=== PATIENT | female | born 1995 | race Caucasian/White ===

== ENCOUNTER 2018-06-16 09:20 | Emergency (ER) | payer OTHER ==
[2018-06-16 09:41] VITALS: PULSE 72; TEMP 98.5; BMI 36.8
[2018-06-16] MEDS ORDERED: ALBUTEROL SO4 2.5/IPRATROPIUM 0.5 INH SOL 3 ML VIAL.NEB. NEB ONE ×4 (10:05→11:03)
--- NOTE | 2018-06-16 10:05 | PDOC ---
History of Present Illness - General Chief Complaint: Asthma Stated Complaint: ASTHMA Time Seen by Provider: 06/16/18 09:48 History Source: Patient Exam Limitations: No Limitations - History of Present Illness Initial Comments: 06/16/18 10:06 Patient came directly department with complaints of cough persistent for the past 3 weeks. got sick around Deejay time and was "too busy to see the doctor" due to work schedule. Denies fever currently, denies knowledge of phlegm production color however is making phlegm and swallowing. Denies nasal drainage. feels tight and has been using her Dulara pump frequently these past few weeks. Patient's blood pressure recorded at 195/107 and is supposed to be taking hypertensive medications but does not. Is uncertain as to name. 06/16/18 10:07 Timing/Duration: reports: getting worse, intermittent Severity: reports: moderate Associated Symptoms: reports: cough, nasal congestion, nasal drainage. denies: fever/chills Past History - Travel Traveled outside of the country in the last 30 days: No Close contact w/someone who was outside of country & ill: No - Past Medical History Allergies/Adverse Reactions: Allergies Allergy/AdvReac Type Severity Reaction Status Date / Time No Known Allergies Allergy Verified 06/16/18 09:58 Home Medications: Ambulatory Orders Albuterol 0.083% Nebulizer Annamarie [Ventolin 0.083% Nebulizer Soln -] 1 neb NEB Q4H PRN #30 vial 06/16/18 predniSONE [Deltasone -] 20 mg PO BID #8 tablet 06/16/18 Asthma: Yes COPD: No HTN: Yes - Immunization History Immunization Up to Date: Yes - Suicide/Smoking/Psychosocial Hx Smoking History: Never smoked Review of Systems - Review of Systems Able to Perform ROS?: Yes Is the patient limited [place] proficient: Yes Constitutional: Yes: Symptoms Reported, See HPI, Malaise. No: Fever HEENTM: Yes: Symptoms Reported, See HPI, Nose Congestion Respiratory: Yes: Symptoms reported, See HPI, Cough, Orthopnea, Wheezing Musculoskeletal: Yes: See HPI. No: Symptoms Reported All Other Systems: Reviewed and Negative *Physical Exam - Vital Signs Last Vital Signs Temp Pulse Resp BP Pulse Ox 98.5 F 72 18 195/102 H 98 06/16/18 09:34 06/16/18 09:34 06/16/18 09:34 06/16/18 09:34 06/16/18 09:34 - Physical Exam General Appearance: Yes: Nourished, Appropriately Dressed, Apparent Distress, Mild Distress HEENT: positive: GERMAN, Normal ENT Inspection, TMs Normal (congested but landmarks easily visualized), Pharynx Normal, Nasal Congestion, Rhinorrhea, Sinus Tenderness Neck: positive: Supple, Lymphadenopathy (R), Lymphadenopathy (L). negative: Tender Respiratory/Chest: positive: Rhonchi, Wheezing. negative: Chest Tender, Lungs Clear (some restricted airway, with some tight breath sounds and faint wheezing. Coarse induced cough with deep inspiration), Normal Breath Sounds Gastrointestinal/Abdominal: positive: Soft. 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 Hypertension uncontrolled with noncompliance with medication. Reviewed urgent need for continuation of medications and follow-up with PMD this week for reevaluation of blood pressure and breath sounds. *DC/Admit/Observation/Transfer Diagnosis at time of Disposition: Asthma exacerbation Qualifiers: Asthma severity: moderate Asthma persistence: unspecified Qualified Code(s): J45.901 - Unspecified asthma with (acute) exacerbation - Discharge Dispostion Disposition: HOME Condition at time of disposition: Stable Decision to Admit order: No - Prescriptions Prescriptions: Albuterol 0.083% Nebulizer Annamarie [Ventolin 0.083% Nebulizer Soln -] 1 neb NEB Q4H PRN #30 vial PRN Reason: Cough predniSONE [Deltasone -] 20 mg PO BID #8 tablet - Referrals Referrals: Andrade Hubbard MD [Primary Care Provider] - - Patient Instructions Printed Discharge Instructions: Asthma -- Adult Additional Instructions: TAKE YOUR BLOOD PRESSURE MEDICATIONS~!!~~~~~~~~~~~!!! Rest, drink lots of fluids: Teas, water, soups, Pedialyte Saltwater gargles Steamy showers/seem to face break up mucus Avoid contact with others until fevers and cough resolved Lots of handwashing and good hygiene Continue [id number] medications for symptomatic relief Tylenol or Motrin for fever and pain Continue albuterol nebulizers every 4-6 hours for the next 2 days then as needed for continued cough Prednisone as directed until completed Followup with private physician in one to 2 days Return to emergency department / pediatric hospital for worsened symptoms, fevers, dehydration - Post Discharge Activity Forms/Work/School Notes: Back to Work
[2018-06-16] MEDS ORDERED: predniSONE 20 MG TABLET (UD) PO ONE (10:06)
[2018-06-16] MEDS ORDERED: predniSONE 20 MG TABLET (UD) ONE (10:12)
[2018-06-16 10:48] VITALS: BP 185/101
== END 2018-06-16 11:47 | disposition home or self-care (01) ==
LOC: JERFT 09:20
PROC: 3E0F7GC Introduction of Other Therapeutic Substance into Respiratory Tract, Via Natural or Artificial Opening (ICD-10-PCS; principal; 2018-06-16)
PROC: 3E0F7GC Introduction of Other Therapeutic Substance into Respiratory Tract, Via Natural or Artificial Opening (ICD-10-PCS; 2018-06-16)
PROC: 3E0F7GC Introduction of Other Therapeutic Substance into Respiratory Tract, Via Natural or Artificial Opening (ICD-10-PCS; 2018-06-16)
DX: J45.901 Unspecified asthma with (acute) exacerbation (principal)
CPT/HCPCS: 94640; 99281-25

== ENCOUNTER 2020-03-10 11:15 | Emergency (ER) | payer OTHER ==
[2020-03-10 11:30] VITALS: BP 155/74; PULSE 80; TEMP 97.1; BMI 37.8
--- NOTE | 2020-03-10 12:19 | PDOC ---
History of Present Illness - General Chief Complaint: Sore Throat Stated Complaint: SORE THROAT Time Seen by Provider: 03/10/20 12:03 History Source: Patient Exam Limitations: No Limitations - History of Present Illness Initial Comments: 03/10/20 12:15 HISTORY OF PRESENT ILLNESS: 24-year-old past medical history of asthma presents emergency department with 3 days of rhinorrhea and facial pain now with dry nonproductive cough which is intermittent. Patient denies any fevers, chills, shortness of breath or sore throat. No recent travel or sick contacts. PAST MEDICAL HISTORY: Asthma SURGICAL HISTORY: Denies ALLERGIES: No known drug allergies REVIEW OF SYSTEMS General/Constitutional: Denies fever or chills. Denies weakness, weight change. HEENT: See HPI Cardiovascular: Denies chest pain or shortness of breath. Respiratory: Denies cough, wheezing, or hemoptysis. Gastrointestinal: Denies nausea, vomiting, diarrhea or constipation. Denies rectal bleeding. Genitourinary: Denies dysuria, frequency, or change in urination. Musculoskeletal: Denies joint or muscle swelling or pain. Denies neck or back pain. Skin and breasts: Denies rash or easy bruising. Neurologic: Denies headache, vertigo, loss of consciousness, or loss of sensation. Psychiatric: Denies depression or anxiety. Endocrine: Denies increased thirst. Denies abnormal weight change. Hematologic/Lymphatic: Denies anemia, easy bleeding, or history of blood clots. Allergic/Immunologic: Denies hives or skin allergy. Denies latex allergy. PHYSICAL EXAM General Appearance: Well-appearing, appropriately dressed. No apparent distress, no intoxication. HEENT: EOMI, PERRLA, normal ENT inspection. Clear nasal discharge present. Oropharynx is unremarkable. Uvula is midline. No conjunctival pallor or e rythema present. Neck: Supple. Trachea midline. No tenderness, rigidity, carotid bruit, stridor, lymphadenopathy, or thyromegaly. Respiratory/Chest: Lungs CTAB. No shortness of breath, chest tenderness, respiratory distress, accessory muscle use. No crackles, rales, rhonchi, stridor, wheezing, dullness Cardiovascular: RRR. S1, S2. No JVD, murmur, bradycardia, tachycardia. Past History - Medical History Allergies/Adverse Reactions: Allergies Allergy/AdvReac Type Severity Reaction Status Date / Time No Known Allergies Allergy Verified 06/16/18 09:58 Home Medications: Ambulatory Orders Albuterol 0.083% Nebulizer Annamarie [Ventolin 0.083% Nebulizer Soln -] 1 neb NEB Q4H PRN #30 vial 06/16/18 predniSONE [Deltasone -] 20 mg PO BID #8 tablet 06/16/18 Asthma: Yes COPD: No HTN: Yes - Reproductive History Is Patient Now?: No - Immunization History Immunization Up to Date: Yes - Psycho-Social/Smoking History Smoking History: Never smoked *Physical Exam - Vital Signs Last Vital Signs Temp Pulse Resp BP Pulse Ox 97.1 F L 80 18 155/74 100 03/10/20 11:19 03/10/20 11:19 03/10/20 11:19 03/10/20 11:03/10/20 11:19 Medical Decision Making - Medical Decision Making 03/10/20 12:17 A/P: 24-year-old woman with history of asthma with rhinorrhea and facial pain over the past 3 days She reports clear tearing from her eyes bilaterally. Oropharynx is unremarkable No conjunctival pallor or erythema present No cervical lymphadenopathy present Clear rhinorrhea present from bilateral nares Symptoms are consistent with allergic rhinitis. Symptomatic treatment has been discussed with the patient. Patient is concerned for infectious etiology and is requesting COVID-19 testing. COVID-19 Discharge home portions of this note have been documented using voice recognition software. As a result, errors may occur in the case management manager process. Effort has been made to correct all grammatical and case management manager error, but some may have been missed which may produce sporadic inaccurate case management manager or nonsensical phrases. Discharge - Discharge Information Problems reviewed: Yes Clinical Impression/Diagnosis: Counseled about COVID-19 virus infection Allergic rhinitis Qualifiers: Allergic rhinitis trigger: unspecified Allergic rhinitis seasonality: seasonal Qualified Code(s): J30.2 - Other seasonal allergic rhinitis Condition: Stable Disposition: HOME - Admission No - Follow up/Referral Referrals: Julius Hubbard [Primary Care Provider] - - Patient Discharge Instructions Additional Instructions: Rest, drink lots of fluids: Teas, water, soups Saltwater gargles. Consider humidifier in room at night Steamy showers/seem to face break up mucus Avoid contact with allergens, exposure to pollens, close windows on a windy day Lots of handwashing and good hygiene Continue [id number] medications for symptomatic relief- may use allergic eyedrops for itching I Continue antihistamines daily until pollen season is over; Zyrtec, Claritin, Jennifer during the daytime and Benadryl at nighttime as will make sleepy Tylenol or Motrin for fever and pain Be COVID-19 testing will take approximately 2 to 3 days to get the results. You will receive a call with the results regardless of results. Followup with private physician in one to 2 days as needed Consider following up with an fitter armament/center director lead teacher for skin testing and possible allergy shots Return to emergency department for worsened symptoms, fevers, dehydration - Post Discharge Activity Work/Back to School Note: Back to Work
== END 2020-03-10 12:29 | disposition home or self-care (01) ==
LOC: JERFT 11:15 → JER 11:15
DX: J30.2 Other seasonal allergic rhinitis (principal)
CPT/HCPCS: 99283-25; C9803; U0003

== ENCOUNTER 2023-01-02 14:54 | Emergency (ER) | payer OTHER ==
[2023-01-02 15:07] VITALS: RESP 18; TEMP 98.2; BMI 34.3
[2023-01-02] MEDS ORDERED: MAG HYDROX/AL HYDROX/SIMETH 30 ML UNIT-DOSE CUP PO ONE (16:38)
[2023-01-02] MEDS ORDERED: FAMOTIDINE 20 MG/50 ML IVPB 20 MG/50 ML MG IVPB ONE ×2 (16:38→16:44)
[2023-01-02] MEDS ORDERED: MAG HYDROX/AL HYDROX/SIMETH 30 ML UNIT-DOSE CUP ONE (16:44)
[2023-01-02 17:14] VITALS: BP 199/111; PULSE 75
[2023-01-02 17:59] LABS: BASO % 0.9 % (0-2.0); EOS % 2.8 % (0-4.5); HEMATOCRIT 41.3 % (32.4-45.2); HEMOGLOBIN 14.3 GM/dL (10.7-15.3); LYMPH % 30.6 % (8-40); MCH 30.7 pg (25.7-33.7); MCHC 34.6 g/dl (32.0-36.0); MEAN CELL VOLUME 88.8 fl (80-96); MEAN PLT VOLUME 10.4 fl (7.5-11.1); NEUT % 56.7 % (42.8-82.8); PLATELET COUNT 250 10^3/uL (134-434); RBC 4.65 M/mm3 (3.60-5.2); RDW 13.2 % (11.6-15.6)
[2023-01-02 18:09] LABS: INR 1.12 (0.83-1.09)
[2023-01-02 18:11] LABS: ACTIVATED PTT 36.6 SECONDS (25.2-36.5); POTASSIUM 3.7 mmol/L (3.5-5.1)
[2023-01-02 18:13] LABS: CALCIUM 8.7 mg/dL (8.5-10.1)
[2023-01-02 18:14] LABS: ALBUMIN 3.7 g/dl (3.4-5.0); BLOOD UREA NITROGEN 8.8 mg/dL (7-18); MAGNESIUM 2.3 mg/dL (1.8-2.4)
[2023-01-02 18:17] LABS: CREATININE 0.7 mg/dL (0.55-1.3)
[2023-01-02 18:18] LABS: BILIRUBIN,TOTAL 0.2 mg/dL (0.2-1); TOT PROT 7.6 g/dl (6.4-8.2)
== END 2023-01-02 19:32 | disposition home or self-care (01) ==
LOC: JER 14:54
PROC: 3E033GC Introduction of Other Therapeutic Substance into Peripheral Vein, Percutaneous Approach (ICD-10-PCS; principal; 2023-01-02)
DX: F41.9 Anxiety disorder, unspecified (principal); R07.89 Other chest pain; I10 Essential (primary) hypertension
CPT/HCPCS: 36415; 71046-TC-FY; 80053; 82550; 83735; 84484; 84703; 85025; 85610; 85730; 93005; 93010; 99285-25

== ENCOUNTER 2023-01-03 14:05 | Emergency (ER) | payer OTHER ==
[2023-01-03 14:29] VITALS: RESP 16; TEMP 98.4; BMI 34.3
[2023-01-03 15:26] VITALS: BP 150/107; PULSE 71
[2023-01-03 15:34] LABS: BASO % 0.8 % (0-2.0); EOS % 2.3 % (0-4.5); HEMATOCRIT 43.3 % (32.4-45.2); HEMOGLOBIN 14.2 GM/dL (10.7-15.3); LYMPH % 19.6 % (8-40); MCHC 32.8 g/dl (32.0-36.0); MEAN CELL VOLUME 91.4 fl (80-96); MEAN PLT VOLUME 10.6 fl (7.5-11.1); MONO % 8.6 % (3.8-10.2); NEUT % 68.7 % (42.8-82.8); PLATELET COUNT 268 10^3/uL (134-434); RBC 4.74 M/mm3 (3.60-5.2); RDW 13.1 % (11.6-15.6); WHITE BLOOD COUNT 10.9 K/mm3 (4.0-10.0)
[2023-01-03] MEDS ORDERED: ACETAMINOPHEN 325 MG TABLET (FP) PO ONE (15:48)
[2023-01-03] MEDS ORDERED: ACETAMINOPHEN 325 MG TABLET (FP) ONE (15:50)
[2023-01-03 16:11] LABS: POTASSIUM 4.6 mmol/L (3.5-5.1)
[2023-01-03 16:13] LABS: CALCIUM 9.3 mg/dL (8.5-10.1)
[2023-01-03 16:14] LABS: BLOOD UREA NITROGEN 9.4 mg/dL (7-18)
[2023-01-03 16:17] LABS: CREATININE 0.7 mg/dL (0.55-1.3)
[2023-01-03 16:18] LABS: BILIRUBIN,TOTAL 0.6 mg/dL (0.2-1)
[2023-01-03 16:19] LABS: TOT PROT 8.2 g/dl (6.4-8.2)
== END 2023-01-03 17:57 | disposition home or self-care (01) ==
LOC: JER 14:05
DX: R06.02 Shortness of breath (principal); R51.9 Headache, unspecified; R07.2 Precordial pain; R53.1 Weakness; R61 Generalized hyperhidrosis; R42 Dizziness and giddiness; I10 Essential (primary) hypertension
CPT/HCPCS: 36415; 71045-TC-FY; 80053; 84484; 85025; 93005; 93010; 99285-25